=== PATIENT | male | born 1995 | race Caucasian/White ===

== ENCOUNTER 2024-03-22 15:15 | Emergency (ER) | payer BC, SELFPAY ==
[2024-03-22 15:24] VITALS: BP 134/87; PULSE 87; RESP 16; TEMP 36.6; O2SAT 98; BMI 21.1
--- NOTE | 2024-03-22 15:33 | CRLHL7_ITS ---
For Patients: As a result of the Cures Act, medical imaging exams and procedure reports are released immediately into your electronic medical record. You may view this report before your referring provider. If you have questions, please contact your health care provider. INDICATION: injury to left pinky finger, smashed between two blocks. TECHNIQUE: COMPARISON: None FINDINGS: Bones: Alignment is normal. No fractures or bone lesions. Joint spaces: Unremarkable. Soft tissues: Mild soft tissue swelling. No radiopaque foreign bodies. IMPRESSION: No acute osseous abnormalities. Dictated by Beni Welch MD @ 03/22/2024 4:17:26 PM (Electronically Signed)
[2024-03-22 16:35] VITALS: BP 138/87; PULSE 77; RESP 16; O2SAT 99
--- OUTSIDE RECORDS SUMMARY | 2024-03-22 17:15 | XMS_ITS | Clinical Summary ---
Author Organization [employer] [facility] Address [place], [place] [address] Care Team Providers Care Life Enrichment Assistant Name Role Phone Tj Bustos DO Primary Care Provider [phone] Allergies Active Allergy Reactions Criticality Noted Date Comments Latex Rash 08/03/2011 Penicillins Rash Medications Medication Sig Dispensed Refills Start Date End Date Status clotrimazole (LOTRIMIN AF, CLOTRIMAZOLE,) 1 % creamIndications:Ti nav pedis of right foot Apply topically to affected area(s) 2 times daily. 60 g 2 10/28/2019 Active hydrOXYzine pamoate (VISTARIL) 25 mg capsuleIndications: Hives Take 1-2 Capsules (25-50 mg) by mouth every 6 hours if needed for Itching. 60 Capsule 1 05/26/2021 Active loratadine (CLARITIN) 10 mg tabletIndications:C holinergic urticaria Take 1 Tablet (10 mg) by mouth once daily. Take twice daily. 30 Tablet 2 12/14/2021 Active desoximetasone 0.25% topical (TOPICORT) 0.25 % ointmentIndications :Allergic dermatitis due to other chemical product Apply topically to affected area(s) two times daily. 60 g 12/14/2021 Active ferrous sulfate 325 mg delayed release tabletIndications:R estless leg Take 1 Tablet (325 mg) by mouth once daily with a meal. 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 Resolved Problems Problem Noted Date Diagnosed Date Resolved Date Oppositional defiant disorde r of childhood or adolescence 08/10/2017 08/10/2017 Attention deficit disorder w ith hyperactivity(314.01) 10/03/2006 10/03/2006 Attention deficit disorder w ithout mention of hyperactivity 07/20/2006 11/25/2008 Immunizations Name Administration Dates Next Due AMB Influenza, IIV3 (Age >=3 years) Preserve Free (Flu Clinic Only) 02/07/2011 AMB Influenza, IIV3 (Age >=3 years)(Flu Clinic Only) 02/14/2008 COVID-19 vaccine (Moderna 100mcg/0.5mL) PF, MDV 04/15/2021 DTaP 09/02/2002, 9,03/30/1998,02/02,1997 HIB HbOC (HibTITER) 03/30/1998,02/02/1998,1997 HIB PRP-OMP (PedvaxHIB) 01/25/1999 Hepatitis A (Peds) 10/26/2012,08/03/2009 Hepatitis B (Peds) 08/10/1998,1997, 998 Hib Conjugate, Unspecified 03/30/1998,02/02/1998 Human Papilloma Virus Vaccine 01/13/2014, 014,07/09/2013 Inactivated Polio Vaccine 09/02/2002,,02/02/1998,12/03 Influenza A (H1N1), Inactivated 03/20/2009 Influenza, IIV3 (Age >=3 years) 02/05/20 13,02/28/2012,01/25/2010,03/05,01/31/2006,03/30/2004,03/03/2003 ,02/12/2002,03/26/2001,02/16/2001 Influenza, IIV4 04/15/2021, 9,04/05/2018,01/17,02/12/2015,01/13/2014 Influenza, IIV4 (=>6mos) MDV 02/07/2017 MENINGOCOCCAL VACCINE 2 VIAL 2MO-55YO (MENVEO) 01/13/2014 MMR 09/02/2002,01/25/1999 Meningococcal Vaccine (Menactra) 08/03/2009 Tdap 10/28/2019,08/03/2009 Varicella Vaccine 08/03/2009,08/30/1999 Family History Medical History Relation Name Comments Good Health Brother 3 Good Health Father Psychiatric illness Maternal Aunt Alcohol/Drug Maternal Grandfather Blood Disease Maternal Grandfather Hypertension Maternal Grandfather Blood Disease Maternal Grandmother Hypertension Maternal Grandmother Thyroid Disease Maternal Grandmother Good Health Mother Psychiatric illness Mother Zoloft - Depressiion and anxiety Psychiatric illness Paternal Aunt Psychiatric illness Paternal Grandfather bipolar Psychiatric illness Paternal Grandmother never treated anxiety/depression Relation Name Status Comments Brother 1 Alive Brother 2 Alive Brother 3 Father Alive Maternal Aunt Maternal Grandfather Maternal Grandmother Mother Alive Paternal Aunt Paternal Grandfather Paternal Grandmother Social History Tobacco Use Types Packs/Day Years Used Date Smoking Tobacco: Former Cigarettes Q uit: 02/01/2019 Smokeless Tobacco: Never Tobacco Cessation:Counseling Given: Yes Alcohol Use Standard Drinks/Week Comments Yes 0 (1 standard drink = 0.6 oz pure alcohol) 1 drink a day, more on weekends PHQ-2 Answer Date Recorded PHQ-2 TOTAL SCORE 0 12/14/2021 Social Connections Answer Date Recorded Frequency of Communication with Friends and Fami ly Not on file 04/17/2021 Financial Resource Strain Answer Date R ecorded Difficulty of Paying Living Expenses Not on file 04/17/2021 Difficulty of Paying Living Expenses Not on file 04/17/2021 Sex and Gender Information Value Date Recorded Sex Assigned at Male 02/11/2020 2:29 PM CDT Gender Identity Male 02/11/2020 2:29 PM CDT Sexual Orientation Straight 02/11/2020 2: 29 PM CDT Obstetrics History Last Filed Vital Signs Vital Sign Reading Time Taken Comments Blood Pressure 129/77 12/14/2021 4:51 PM CDT Pulse 80 12/14/2021 4:51 PM CDT Temperature 36.6 C (97.9 F) 04/27/2021 12:04 PM [employer] Respiratory Rate 16 04/27/2021 12:04 PM [employer] Oxygen Saturation 100% 12/14/2021 4:51 PM CDT Inhaled Oxygen Concentration - - Weight 68.8 kg (151 lb 9.6 oz) 12/14/2021 4:51 P M CDT Height 184.3 cm (6' 0.56) 12/14/2021 4:51 PM CD T Body Mass Index 20.25 12/14/2021 4:51 PM CDT Plan of Treatment Health Maintenance Due Date Last Done Comments BMI (ht and wt on same day) for age 18+ 12/14/2022 12/14/2021, 05/26/2021, 11/23/2020, Additional history exists Depression screening for age 12+ 12/14/2022 12/14/2021, 08/03/2020, 03/04/2019, Additional history exists COVID-19 vaccine series ( season) 2023 04/15/2021, 09/05/2020, 08/08/2020 Influenza for age 9-49 12/17/2023 , 03/04/2019, 04/05/2018, Additional history exists Tetanus booster 10/27/2029 10/28/2019, 08/03/2009 HPV series for age 9-26 Completed 01/14/20 14, 08/19/2013, 07/09/2013 HIV for age 15-65 Completed 10/10/2017 Hepatitis C screening for age 18-79 Completed 10/10/2017 Tdap Completed 10/28/2019, 08/03/2009 Pneumococcal series for age 6-64 Aged Out No longer eligible based on patient's age to complete this topic Procedures Procedure Name Priority Date/Time Associated Diagnosis Comments ANTI HIV 1/2 Routine 10/10/2017 12:38 PM CDT Screen for STD (sexually transmitted disease) ANTI HCV Routine 10/10/2017 12:38 PM CDT Screen for STD (sexually transmitted disease) from Last 3 Months or Most Recently Relevant to Health Maintenance Results * ANTI HCV (10/10/2017 12:38 PM CDT) HEPATITIS C ANTIBODY Non-React lay Non-React lay 10/10/2017 5:24 PM CDT [facility] Comment:Antibodies to HCV no t detected; does not exclude the possibility of exposure to HCV. Blood BLOOD SPECIMEN / Unknown Venipuncture / Unknown 10/10/2017 12:38 PM CDT 10/10/2017 12:38 PM CDT Alex Elena DO [facility] [address] [place] [address], [place] * ANTI HIV 1/2 (10/10/2017 12:38 PM CDT) Pathologist [facility] HIV-1/HIV-2 ANTIBODY Non-Reacti ve Non-Reacti ve 10/10/2017 5:20 PM CDT [facility] Comment:HIV-1 p24 and HIV-1/ HIV-2 Ab not detected. Blood BLOOD SPECIMEN / Unknown Venipuncture / Unknown 10/10/2017 12:38 PM CDT 10/10/2017 12:38 PM CDT Alex Elena DO [facility] [address] [place] [address], from Last 3 Months or Most Recently Relevant to Health Maintenance Care Teams Life Enrichment Assistant Relationship Specialty Start Date End Date Tj Bustos DO [address] [address] PCP - General Family Practice 12/14/21
--- NOTE | 2024-03-22 23:01 | ED.GENADULT ---
HPI - General Adult General Chief complaint: Extremity Pain/Injury, Upper Stated complaint: left pinky finger smahed Time Seen by Provider: 03/22/24 16:48 History of Present Illness HPI narrative: Pt states he was working outside on his house, smashed left little finger in between two concrete pavers . Bleeding controlled, pt states he is able to move finger but c/o pain with movement. Last tetanus 2019. 28-year-old man presenting to the emergency department after sustaining finger injuries. Was working on his home when his finger got pinched between to concrete papers. The by the time I am seeing Mr. Morley in busy emergency department he has already received an x-ray of said finger. I have independent reviewed this and it looks to be absent bony injury. Bleeding has been controlled. Is not complaining of significant pain though admittedly hurts some with movement. Related Data Home Medications ?Medication ?Instructions ?Recorded ?Confirmed ferrous sulfate 325 mg (65 mg 325 mg PO QDAY 01/17/22 01/17/22 iron) tablet loratadine 10 mg tablet 10 mg PO QDAY 01/17/22 01/17/22 sertraline 50 mg tablet (Zoloft) 100 mg PO QDAY 01/17/22 01/17/22 Allergies Allergy/AdvReac Type Severity Reaction Status Date / Time latex Allergy Intermediate Rash Verified 03/22/24 15:29 Penicillins Allergy Intermediate Rash Verified 03/22/24 15:29 Review of Systems Status of ROS: Reports: 6 or more systems reviewed and unremarkable except as noted in History and below [facility] Medical History Laceration of finger ?S61.219A - Laceration without foreign body of unspecified finger without damage to nail, initial encounter (ICD-10) Social History Smoking Status: Never smoker Do you use any of these nicotine containing products: E-Cigarettes How often do you have a drink containing alcohol: 2-3 times a week AUDIT-C Alcohol total score: 3 Non-prescribed substance use: marijuana (any form) Exam Narrative: Exam Narrative: Very pleasant. Calm. Breathing easily. Examination of the left hand in question shows a just full dermal horizontal laceration at 1 cm with larger area of intradermal scraping at the base of the volar side 5th finger. It is slightly open/gapped. There is small intradermal scrape at the base of the 4th finger as well with jovan of metallic foreign body within. Intact full flexion extension on both fingers. Well-perfused peripherally. Const: Vital Signs, click to edit/add: Vital Signs - 24 hr 03/22/24 15:24 03/22/24 16:35 Temperature 97.8 F Pulse Rate [Pulse Oximeter] 87 77 Respiratory Rate 16 16 Blood Pressure [Ri ght Upper Arm] 134/87 138/87 Pulse Oximetry 98 99 Oxygen Delivery Me thod Room Air Room Air Documenting provider has reviewed patient's vital signs: yes Course Vital Signs Vital signs: Initial Vital Signs Temperature 97.8 F 03/22/24 15:24 Temperature Source Temporal Artery Scan 03/22/24 15:24 Pulse Rate 87 03/22/24 15:24 Pulse Rhythm Regular 03/22/24 15:24 Respiratory Rate 16 03/22/24 15:24 Blood Pressure 134/87 03/22/24 15:24 Blood Pressure Mean 102 03/22/24 15:24 Blood Pressure Position Sitting 03/22/24 15:24 Pulse Oximetry 98 03/22/24 15:24 Oxygen Delivery Method Room Air 03/22/24 15:24 Vital Signs Temperature 97.8 F 03/22/24 15:24 Pulse Rate 87 03/22/24 15:24 Respiratory Rate 16 03/22/24 15:24 Blood Pressure 134/87 03/22/24 15:24 Pulse Oximetry 98 03/22/24 15:24 Oxygen Delivery Method Room Air 03/22/24 15:24 Temperature 97.8 F 03/22/24 15:24 Pulse Rate 77 03/22/24 16:35 Respiratory Rate 16 03/22/24 16:35 Blood Pressure 138/87 03/22/24 16:35 Pulse Oximetry 99 03/22/24 16:35 Oxygen Delivery Method Room Air 03/22/24 16:35 Medical Decision Making MDM Narrative Medical decision making narrative: Discussed reassuring findings in x-ray as above. We discussed just placing Band-Aid over these wounds but given his lifestyle/active work might be more manageable tablet closed. I think this is appropriate course of action. I would place sutures. Will need more than 2 interrupted sutures. We decided to proceed without anesthesia. After cleansing with Shur-Clens equivalent solution I placed 2 interrupted 5 0 Ethilon sutures which well-approximated the wound and bleeding controlled. While painful he tolerated this quite well. Also was able to pick jovan of foreign body from the lesion on the 4th finger. All covered with bacitracin and Band-Aid. Medical Records Medical records reviewed: Yes I reviewed the patient's medical records Discharge Plan Discharge Clinical Impression: Crush injury to finger, Laceration of finger of left hand Patient Disposition: Home, Self-Care Condition: Improved Additional Instructions: Antibiotic ointment and Band-Aid for 4 days and then to a dry dressing. Sutures out in 8-10 days. Okay to get wet but try not to soak well sutures are in. Ibuprofen, elevation for comfort. Watch for spreading redness after 2 days, marked increase in swelling, pain or purulent drainage. Prescriptions: No Action sertraline [Zoloft] 50 mg tablet 100 mg PO QDAY loratadine 10 mg tablet 10 mg PO QDAY ferrous sulfate 325 mg (65 mg iron) tablet 325 mg PO QDAY Follow Up/Referrals: Mia Allison MD [Primary Care Provider] - Stand Alone Forms: Monitor My Meds Info Instructions
== END 2024-03-22 17:23 | disposition home or self-care (01) ==
LOC: ED 17:14
PROVIDERS: Emergency Provider Family Medicine; PCP Family Medicine
DX: S67.22XA Crushing injury of left hand, initial encounter (principal); S67.197A Crushing injury of left little finger, initial encounter; S61.217A Laceration without foreign body of left little finger without damage to nail, initial encounter; W23.0XXA Caught, crushed, jammed, or pinched between moving objects, initial encounter
CPT/HCPCS: 12001; 73140; 99283; 99284